=== PATIENT | female | born 1950 | race Caucasian/White ===

== ENCOUNTER 2017-10-09 12:30 | Outpatient (CLI) | payer OTHER ==
[2017-10-09 13:09] LABS: ALT (SGPT) 26 U/L (8-55); AST (SGOT) 24 U/L (5-34); Albumin 4.3 g/dL (3.4-4.8); Alkaline Phosphatase 82 U/L (40-150); Anion Gap 15 mmol/L (10-20); BUN (Urea Nitrogen) 17 mg/dL (9.8-20.1); Bilirubin, Total 0.7 mg/dL (0.2-1.2); Calc. Creatinine Clearance 0 mL/min (70-130); Calcium 9.5 mg/dL (7.8-10.44); Carbon Dioxide 24 mmol/L (23-31); Cardiac Risk 3.4 (Less than 4.5); Chloride 107 mmol/L (98-107); Cholesterol 208 mg/dl (< 200 Desired); Estimated GFR-MDRD 63; Globulin 3.1 g/dL (2.4-3.5); Glucose 96 mg/dL (80-115); HDL Cholesterol 62 mg/dL (>60 Neg Risk); LDL Cholesterol, Calculated 126 mg/dL; Potassium 4.5 mmol/L (3.5-5.1); Protein, Total 7.4 g/dL (6.0-8.3); Sodium 141 mmol/L (136-145); Triglycerides 98 mg/dL (Less than 150)
[2017-10-09 13:20] LABS: #Basophils 0.1 thou/uL (0.0-0.2); #Eosinphils 0.1 thou/uL (0.0-0.7); #Monocytes 0.3 thou/uL (0.11-0.59); #Neutrophils 2.7 thou/uL (1.40-6.50); %Basophils 1.9 % (0.0-1.0); %Eosinophils 3.3 % (0.0-10.0); %Lymphocytes 24.3 % (21.0-51.0); %Monocytes 6.8 % (0.0-10.0); %Neutrophils 63.7 % (42.0-75.0); Hemoglobin 13.9 g/dL (12.0-16.0); Mean Corpuscular HGB CONC 34.4 g/dL (32.0-36.0); Mean Corpuscular Hemoglobin 30.5 pg (27.0-31.0); Mean Corpuscular Volume 88.6 fl (81.0-99.0); Mean Platelet Volume 7.1 fL (7.4-10.4); Platelet Count 212 thou/uL (130-400); RBC Distribution Width 12.3 % (11.5-14.5); Red Blood Cell (RBC) Count 4.58 mill/uL (4.20-5.40); White Blood Cell (WBC) Count 4.3 thou/uL (4.8-10.8)
--- NOTE | 2017-10-09 13:31 | RAD ---
RIGHT KNEE FOUR VIEWS: HISTORY: Right knee pain. FINDINGS: Joint spaces are preserved. Fluid distends the suprapatellar bursa on the lateral view. Mild osteop hytosis. No acute fracture, dislocation, or aggressive osseous erosions. IMPRESSION: Joint fluid, which may reflect an effusion from other mild degenerative changes. No acute osseous ab normalities are demonstrated. POS: [facility]
== END 2017-10-09 12:31 | disposition home or self-care (01) ==
LOC: MADLAB 12:30
PROVIDERS: ATTEND Family Medicine
DX: Z13.228 Encounter for screening for other metabolic disorders (principal); M25.461 Effusion, right knee; M25.561 Pain in right knee; E78.5 Hyperlipidemia, unspecified; I10 Essential (primary) hypertension
CPT/HCPCS: 36415; 80053; 80061; 84443; 85025

== ENCOUNTER 2020-03-27 12:19 | Outpatient (CLI) | payer MEDICARE, OTHER ==
--- NOTE | 2020-03-27 12:46 | RAD ---
LEFT ANKLE 3 VIEWS: HISTORY: Ankle sprain, left ankle pain. FINDINGS: The ankle mortise is maintained. No fracture, dislocation, or bony destruction is seen. There are p osterior and plantar calcaneal spurs. POS: [facility]
== END 2020-03-27 12:20 | disposition home or self-care (01) ==
LOC: MADRAD 12:19
PROVIDERS: ATTEND Nurse Practitioner Family
DX: S93.402A Sprain of unspecified ligament of left ankle, initial encounter (principal); M25.572 Pain in left ankle and joints of left foot; R22.42 Localized swelling, mass and lump, left lower limb; M77.32 Calcaneal spur, left foot